=== PATIENT | female | born 1990 ===

== ENCOUNTER 2021-08-22 03:09 | Emergency (ER) | payer OTHER ==
[2021-08-22 03:33] VITALS: BP 124/69
[2021-08-22 04:17] LABS: Bilirubin,Urine NEG (Negative); Blood,Urine MOD (Negative); Color,Urine Yellow (Yellow); Protein,Urine <15 mg/dL mg/dL (Negative); Urobilinogen,Urine < 2.0 mg/dL (<2.0)
[2021-08-22 04:18] LABS: Bacteria,Urine 1+ /HPF (Negative); Mucus,Urine FEW /HPF; RBC,Urine < 1.0 /HPF (0.0-6.0); WBC,Urine < 1.0 /HPF (0.0-6.0)
== END 2021-08-22 11:11 | disposition left against medical advice (07) ==
LOC: ED 03:09
DX: R21 Rash and other nonspecific skin eruption (principal); Z53.21 Procedure and treatment not carried out due to patient leaving prior to being seen by health care provider
CPT/HCPCS: 81001; 87210